=== PATIENT | female | born 1990 | race Caucasian/White ===

== ENCOUNTER 2018-08-16 11:50 | Observation (INO) ==
[2018-08-16] MEDS ORDERED: Ringers Solution, Lactated 1,000 ML IVC SCH (12:15)
[2018-08-16 13:15] LABS: Amphetamine Screen,Urine Negative ng/mL (Cutoff=1000); Barbiturate Screen,Urine Negative ng/mL (Cutoff=200); Benzodiazepines Screen,Urine Negative ng/mL (Cutoff=200); Cannabinoid Screen,Urine Negative ng/mL (Cutoff = 50); Cocaine Screen,Urine Negative ng/mL (Cutoff= 300); Opiate Screen,Urine Negative ng/mL (Cutoff=300); Phencyclidine Screen,Urine Negative ng/mL (Cutoff=25)
[2018-08-16 13:18] LABS: Basophils % 0.3 %; Eosinophils # 0.1 K/mcL (0.0-0.6); Eosinophils % 1.4 %; Hemoglobin 12.8 g/dL (11.5-15.4); Immature Granulocytes % 0.8 % (0-4); Lymphocytes # 1.6 K/mcL (0.6-4.6); Lymphocytes % 22.5 %; Mean Corpuscular HGB Conc 33.7 g/dL (31.6-35.5); Mean Corpuscular Hemoglobin 26.4 pg (28.0-33.3); Mean Corpuscular Volume 78.4 fL (83.0-100.0); Mean Platelet Volume 9.9 fL (9.4-12.4); Monocytes # 0.7 K/mcL (0.0-1.3); Monocytes % 9.5 %; Neutrophils # 4.8 K/mcL (1.6-8.9); Platelet Count 214 K/mcL (140-400); Red Blood Count 4.85 M/mcL (3.82-4.97); Red Cell Distribution Width 14.8 % (11.5-14.5); Segmented Neutrophils % 65.5 %
[2018-08-16 13:34] LABS: Triiodothyronine (T3) Free 3.47 pg/mL (2.50-3.90)
[2018-08-16 13:38] LABS: Triiodothyronine (T3) Total 1.76 ng/mL (0.87-1.78)
[2018-08-16 13:45] LABS: Thyroid Stimulating Hormone 1.634 mcIU/mL (0.340-5.600)
--- NOTE | 2018-09-01 11:01 | OB Labor Progress Note ---
Date of Encounter: 08/16/18 Time of Encounter: 15:00 Labor Progress Note - Subjective Subjective: Pt seen in office and found to have FHT's 190-200, she reports +GFM, no vb or lof. She does report feeling like she has a URI and achy. She denies UC's. - Vital Signs Vital Signs: temp 99.1, pulse 92,rr16 - Heart Tones Heart Tones: 150's and reactive (cat 1) - Mclean Mclean: irregular uc's - Plan Plan: Pt at 37 weeks gestation with tachycardia in office by doppler. During extended monitoring tracing was reassuring with normal baseline with accels. Tracing is reactive and she reports active fetus. She had normal TSH and CBC. Will d/c home with instructions to follow movement and do kick counts. She is to call if she identifies any concerns.
--- NOTE | 2018-09-01 11:28 | OB Labor Progress Note ---
Date of Encounter: 09/01/18
== END 2018-08-16 14:30 | disposition home or self-care (01) ==
LOC: 1NENULAB
PROVIDERS: ADMIT Registered Nurse; ATTEND Registered Nurse

== ENCOUNTER 2018-09-03 06:00 | Inpatient (IN) ==
[2018-09-03] MEDS ORDERED: Metoclopramide 10 MG/2 ML VIAL IVP PRN (06:34)
[2018-09-03] MEDS ORDERED: *HR* Nalbuphine 10 MG/ML AMPUL IVP PRN (06:34)
[2018-09-03] MEDS ORDERED: Naloxone 0.4 MG/ML INJ IVP PRN (06:34)
[2018-09-03] MEDS ORDERED: Ondansetron 4 MG/2 ML VIAL IVP PRN (06:34)
[2018-09-03] MEDS ORDERED: miSOPROStol 25 MCG TABLET PO PRN (06:34)
[2018-09-03] MEDS ORDERED: Famotidine 20 MG/2 ML VIAL IVP PRN (06:34)
[2018-09-03] MEDS ORDERED: Ringers Solution, Lactated 1,000 ML IVC SCH (06:45)
[2018-09-03 06:48] LABS: Basophils % 0.3 %; Eosinophils # 0.1 K/mcL (0.0-0.6); Eosinophils % 1.1 %; Hematocrit 35.3 % (35.3-44.9); Hemoglobin 11.7 g/dL (11.5-15.4); Immature Granulocytes % 0.6 % (0-4); Lymphocytes # 3.1 K/mcL (0.6-4.6); Lymphocytes % 29.8 %; Mean Corpuscular HGB Conc 33.1 g/dL (31.6-35.5); Mean Corpuscular Hemoglobin 26.7 pg (28.0-33.3); Mean Corpuscular Volume 80.4 fL (83.0-100.0); Mean Platelet Volume 10.2 fL (9.4-12.4); Monocytes # 0.6 K/mcL (0.0-1.3); Monocytes % 6.1 %; Neutrophils # 6.4 K/mcL (1.6-8.9); Platelet Count 227 K/mcL (140-400); Red Blood Count 4.39 M/mcL (3.82-4.97); Red Cell Distribution Width 15.2 % (11.5-14.5); Segmented Neutrophils % 62.1 %
[2018-09-03 07:01] LABS: Amphetamine Screen,Urine Negative ng/mL (Cutoff=1000); Barbiturate Screen,Urine Negative ng/mL (Cutoff=200)
[2018-09-03 07:03] LABS: Benzodiazepines Screen,Urine Negative ng/mL (Cutoff=300); Cannabinoid Screen,Urine Negative ng/mL (Cutoff = 50); Cocaine Screen,Urine Negative ng/mL (Cutoff= 300); Opiate Screen,Urine Negative ng/mL (Cutoff=300); Phencyclidine Screen,Urine Negative ng/mL (Cutoff=25)
--- NOTE | 2018-09-03 10:04 | Anesthesia Evaluation PreOp ---
Date of Encounter: 09/03/18 Time of Encounter: 10:11 - Past History Planned Operation: CHANO Cardiac History: Hyperlipidemia (statins stopped during ) Pulmonary History: Denies Any Significant HX NET LEAD ARCHITECT History: Denies Any Significant HX Other Medical History: GERD Anesthesia History: No Prior Anesthetic Complications, Past Anesthesia (ACL) : Yes Test: Positive Alcohol Use: none Drug use: none Medications and Allergies Vitamin Tablet 1 tab PO DAILY 08/16/18 [History] Allergy/AdvReac Type Severity Reaction Status Date / Time acetaminophen [From Vicodin] AdvReac Vomiting Verified 08/16/18 12:32 hydrocodone [From Vicodin] AdvReac Vomiting Verified 08/16/18 12:32 - Meds/Allergy Pre-op Review Medications Reviewed: Yes Allergies Reviewed: Yes Beta Blockers on Current Med List: No Anesthesia Results - Labs 09/03/18 06:25 09/03/18 06:25 Anesthesia Exam see note Height: 5'5" Weight: 211 lb NPO (# of Hours): 2 Pain Scale: 2 Pain Scale Used: Numeric (1 - 10) - HEENT Pupil (Motor): Pupils equal Mallampati: II Teeth: Normal Oral Opening: Greater than 3 - NET LEAD ARCHITECT LOC: Oriented NET LEAD ARCHITECT Motor: Normal RUE, Normal LUE, Normal RLE, Normal LLE, Normal Face NET LEAD ARCHITECT Sensory: Normal: RUE, LUE, RLE, LLE, Face - Cardiac Rhythm: Regular Murmur: None - Pulmonary Breath Sounds: bilateral Clear Respiratory Effort: Symmetrical Anesthesia Assess/Plan ASA Score: 2 Level of consciousness: Cooperative Anesthetic Plan: Epidural (risks discussed, questions answered, consented) Autologous Blood: No Monitoring Plan: Standard Monitors Recovery Plan: Other
[2018-09-03] MEDS ORDERED: *HR* Ropivacaine/PF 0.2% 20 ML VIAL EP ONE (10:12)
[2018-09-03] MEDS ORDERED: *HR* FentaNYL (PF) 100 MCG/2 ML VIAL EP ONE (10:12)
[2018-09-03] MEDS ORDERED: Epidural Premix (fent/bupiv) 110 ML EP SCH (10:15)
[2018-09-03] MEDS ORDERED: *HR* Ropivacaine/PF 0.2% 20 ML VIAL ONE (10:34)
[2018-09-03] MEDS ORDERED: *HR* FentaNYL (PF) 100 MCG/2 ML VIAL ONE (10:34)
[2018-09-03] MEDS ORDERED: Lidocaine -MPF 2% 5 ML VIAL ONE (10:34)
--- NOTE | 2018-09-03 11:01 | Anesthesia Procedures ---
Addendum entered and electronically signed by Milad Jesus CRNA 09/03/18 16:02: Date: 09/03/18 14:06 Delivery - Delivery Date: 09/03/18 Provider: Kurt Eugene Delivery induction: misoprostol Delivery monitor: external FHT, external uterine Anesthesia: epidural Quantitated Blood Loss: 200 Original Note: Date of Encounter: 09/03/18 Time of Encounter: 10:59 Procedures: Anesthesia - Epidural/Spinal Patient ID/Chart reviewed: Yes Patient examined: Yes OB Eval: Gestational age: 39 OB Eval: : 2 OB Eval: Hx Para: 1 OB Eval: Dilated at (cm): 6 OB Eval: Contractions: Non-stressed pattern Consent Obtained: Yes Supplemental Oxygen: None/Room Air Site Prep: Aseptic Technique, Sterile prep and drape, 0.5% Chlorhexidine/Alcohol Patient position: upright Local Anesthetic: Lidocaine 1% Amount of Local Anesthetic used: 3 Touhy Needle Gauge: 18 Touhy Needle Depth (cm): 8 Catheter Depth at Skin (cm): 20 Test Dose (1.5% Lido + Epi): Volume given (mls): 3 Test Dose Result: Negative Loading Dose: Fentanyl (mcg): 100 Loading Dose: Other: rop 0.2% 10cc Loading Dose Administered: Thru Touhy Needle Infusion Med: 0.125% Bupivacaine w/ 2 mcg/ml Fentanyl Infusion Rate (mls/hr): 15 (pcea 5cc q30") Catheter Secured in Place: Tegaderm Interspace Used: L2-L3 Loss of Resistance (JUDY): Yes Blood: No CSF: No Paresthesia: No Procedure: aseptic, yolanda well,VSS, effective Vitals + FHT's: 130/80 88 16 fht 132
[2018-09-03] MEDS ORDERED: Oxytocin 20 units/ LR 1000 mL 20 UNIT/1,000 ML BAG IVC ONE (13:10)
--- NOTE | 2018-09-03 14:08 | OB/GYN Procedure Note ---
Delivery - Delivery Date: 09/03/18 Provider: Kurt Eugene Delivery induction: misoprostol Delivery monitor: external FHT, external uterine Anesthesia: epidural Quantitated Blood Loss: 200 - Repair Episiotomy: none Laceration Description: Perineal - 1st Degree - Complications Delivery complications: none - Disposition Mom disposition: stable in LDR [place] disposition: stable in LDR - Comments Comments: Patient is status post normalspontaneous vaginal delivery of liveborn male infant weighing 9 lbs. 4 oz. Apgars of 9 at 1 minute and 9 at 5 minutes with spontaneous delivery of normal placenta with three-vessel cord. This first- degree laceration repaired with 3-0 Vicryl under epidural anesthesia. No complications mother and infant recovered in labor and delivery and
--- NOTE | 2018-09-03 14:10 | OB/GYN History & Physical ---
Date of Encounter: 09/03/18 Time of Encounter: 14:08 Assessment and Plan (1) 39 weeks gestation of Current visit: Yes Status: Acute Pt at 39 weeks gestation presents for induction of labor. Will admit to labor and delivery and begin Cytotec. Perform amniotomy when able and expect NDSVD. History of Present Illness Chief complaint: Here for induction HPI: Ms. Ramos is a 27 year old female at 39 weeks and 5 days gestation presents for induction of labor. thus far has been uncomplicated. Past Med Surg Social Fam HX - Past Medical History Source: patient, old records reviewed Medical history: no medical history Psychiatric history: no psych history - Past Surgical History Additional surgical history: ACL surgery 2005 - Social History Smoking Status: Never smoker Smokeless Tobacco Status: No Alcohol use: none Drug use: none - Family History Mother Age: 59 Living Status: Still Living Hx Family Cardiac Disorders: Yes (htn) Hx Family Respiratory Disorders: No Hx Family Cancer: No Hx Family GI Disorders: No Hx Family Genitourinary Disorders: No Hx Family Endocrine Disorder: No Hx Family Musculoskeletal Disorders: No Hx Family Neuromuscular Disorders: No Hx Family Neurologic Disorders: No Hx Family HEENT Disorders: No Hx Family Autoimmune Disorders: No Hx Family Reproductive Disorders: No Hx Family Psychosocial Disorders: No Hx Family Medical Disorders: No Obstetrical History - Pregnancies : 2 Medications and Allergies Vitamin Tablet 1 tab PO DAILY 08/16/18 [History] Allergy/AdvReac Type Severity Reaction Status Date / Time acetaminophen [From Vicodin] AdvReac Vomiting Verified 08/16/18 12:32 hydrocodone [From Vicodin] AdvReac Vomiting Verified 08/16/18 12:32 Exam - Vital Signs Vital signs: Initial Vital Signs Temp Pulse Resp BP 98.2 F 83 16 125/80 09/03/18 06:22 09/03/18 06:22 09/03/18 06:22 09/03/18 06:22 - Constitutional Constitutional: well nourished, no acute distress - HEENT HEENT: EOMI, PERRL - Neck Neck exam: full ROM - Lungs Respiratory exam: CTAB - Cardiovascular Cardiovascular exam: RRR - Abdomen Abdomen: Present: gravid - Extremities Extremities exam: full ROM Deep Tendon Reflex Grade: 2+ Normal - Cervix Dilation: 3 Effacement: 90 Station: -2 Results Result Diagrams: 09/03/18 06:25 09/03/18 06:25 Abnormal lab results MCV 80.4 fL (83.0-100.0) L 09/03/18 06:25 MCH 26.7 pg (28.0-33.3) L 09/03/18 06:25 RDW 15.2 % (11.5-14.5) H 09/03/18 06:25 Glucose 124 mg/dL (70-105) H 09/03/18 06:25 All other labs normal. - VTE Reasons for not Prescribing Prophylaxis: Treatment not Indicated - Low risk for VTE
[2018-09-03] MEDS ORDERED: Oxytocin 20 units/ LR 1000 mL 20 UNIT/1,000 ML BAG IVC SCH (16:30)
[2018-09-03] MEDS ORDERED: Rho Immune Globulin 1,500 UNIT SYRINGE IM PRN (16:30)
[2018-09-03] MEDS ORDERED: Acetaminophen 325 MG TABLET PO PRN (16:30)
[2018-09-03] MEDS ORDERED: Measles/Mumps/Rubella Vacc 0.5 ML VIAL SQ PRN (16:30)
[2018-09-04 05:28] LABS: Basophils % 0.3 %; Eosinophils # 0.1 K/mcL (0.0-0.6); Eosinophils % 0.8 %; Hematocrit 30.7 % (35.3-44.9); Immature Granulocytes % 0.7 % (0-4); Lymphocytes # 3.8 K/mcL (0.6-4.6); Lymphocytes % 31.3 %; Mean Corpuscular HGB Conc 32.9 g/dL (31.6-35.5); Mean Corpuscular Hemoglobin 26.6 pg (28.0-33.3); Mean Corpuscular Volume 80.8 fL (83.0-100.0); Monocytes # 0.9 K/mcL (0.0-1.3); Neutrophils # 7.3 K/mcL (1.6-8.9); Platelet Count 184 K/mcL (140-400); Red Cell Distribution Width 15.6 % (11.5-14.5); Segmented Neutrophils % 59.9 %
[2018-09-04 05:30] LABS: Hemoglobin 10.1 g/dL (11.5-15.4)
[2018-09-04 08:29] VITALS: BP 111/73
[2018-09-04] MEDS ORDERED: Prenatal Vit/FA 1 EACH TABLET PO SCH (09:00)
--- NOTE | 2018-09-04 09:22 | Discharge Summary ---
Date of Encounter: 09/04/18 Time of Encounter: 09:18 - Discharge Diagnosis (1) Status post vaginal delivery Priority: Primary Status: Acute Comments: S/p induction of labor with spontaneous vaginal delivery 1st degree lac repair but otherwise no complications Eating well, no problems with urination, passing gas, pain well controlled, moderate lochia with passage of 2 small clots Plans to bottle feed and restart control pills at follow up appointment - Discharge Medications Prescriptions: New Acetaminophen [Tylenol] 650 mg PO Q6HR PRN #0 tablet PRN Reason: Mild Pain Docusate [Colace] 100 mg PO BID #60 capsule Ibuprofen [Motrin] 600 mg PO Q6HR PRN 30 Days tab PRN Reason: Pain Continue Vitamin Tablet 1 tab PO DAILY #30 Home Medications: Acetaminophen [Tylenol] 650 mg PO Q6HR PRN #0 tablet 09/04/18 [Rx] Docusate [Colace] 100 mg PO BID #60 capsule 09/04/18 [Rx] Ibuprofen [Motrin] 600 mg PO Q6HR PRN 30 Days tab 09/04/18 [Rx] Vitamin Tablet 1 tab PO DAILY #30 09/04/18 [Rx] Allergies/Adverse Reactions: Allergy/AdvReac Type Severity Reaction Status Date / Time hydrocodone [From Vicodin] AdvReac Vomiting Verified 08/16/18 12:32 Data Procedures and tests throughout hospitalization: Laboratory Tests 09/03/18 09/03/18 09/03/18 06:25 06:25 06:25 WBC 10.2 RBC 4.39 Hgb 11.7 Hct 35.3 MCV 80.4 L MCH 26.7 L MCHC 33.1 RDW 15.2 H Plt Count 227 MPV 10.2 Immature Gran % 0.6 Seg Neutrophils % 62.1 Lymphocytes % 29.8 Monocytes % 6.1 Eosinophils % 1.1 Basophils % 0.3 Neutrophils # 6.4 Lymphocytes # 3.1 Monocytes # 0.6 Eosinophils # 0.1 Basophils # 0.0 Glucose 124 H Urine Opiates Screen Negative Ur Barbiturates Screen Negative Ur Phencyclidine Scrn Negative Ur Amphetamines Screen Negative U Benzodiazepines Scrn Negative Urine Cocaine Screen Negative U Marijuana (THC) Screen Negative Ur Drug Screen Interp See Below Baby's Blood Type Mother's Blood Type Rhogam Indicated 09/03/18 09/04/18 14:00 04:38 WBC 12.2 H RBC 3.80 L Hgb 10.1 L D Hct 30.7 L MCV 80.8 L MCH 26.6 L MCHC 32.9 RDW 15.6 H Plt Count 184 MPV 10.0 Immature Gran % 0.7 Seg Neutrophils % 59.9 Lymphocytes % 31.3 Monocytes % 7.0 Eosinophils % 0.8 Basophils % 0.3 Neutrophils # 7.3 Lymphocytes # 3.8 Monocytes # 0.9 Eosinophils # 0.1 Basophils # 0.0 Glucose Urine Opiates Screen Ur Barbiturates Screen Ur Phencyclidine Scrn Ur Amphetamines Screen U Benzodiazepines Scrn Urine Cocaine Screen U Marijuana (THC) Screen Ur Drug Screen Interp Baby's Blood Type B RH NEGATIVE Mother's Blood Type B RH NEGATIVE Rhogam Indicated NO Labs on day of discharge: Labs from last 24 hours 09/04/18 09/03/18 04:38 14:00 WBC 12.2 H RBC 3.80 L Hgb 10.1 L D Hct 30.7 L MCV 80.8 L MCH 26.6 L MCHC 32.9 RDW 15.6 H Plt Count 184 MPV 10.0 Immature Gran % 0.7 Seg Neutrophils % 59.9 Lymphocytes % 31.3 Monocytes % 7.0 Eosinophils % 0.8 Basophils % 0.3 Neutrophils # 7.3 Lymphocytes # 3.8 Monocytes # 0.9 Eosinophils # 0.1 Basophils # 0.0 Baby's Blood Type B RH NEGATIVE Mother's Blood Type B RH NEGATIVE Rhogam Indicated NO Date of admission: 09/03/18 06:04 Primary care physician: Rene Vivar Consults: 09/03/18 16:30 Consult to Branch Library Clerk [CONS] Routine Comment: Vaginal delivery, consult needed Discharging clinician: Stephie oJnes Anticipated date of discharge: 09/04/18 - Patient Status Disposition: Home, Self-Care Condition: Good Functional capacity at discharge: independent ambulation Overall status at discharge: patient is back to baseline - Discharge Instructions Follow Up With: Rene Vivar DO [Primary Care Provider] - Kurt Eugene MD [Partnered Physician] - - Diet and Activity Activity: resume usual activities as tolerated Diet: advance to your usual diet Hospital Course Reason for admission: induction of labor Delivery: Episiotomy: none Laceration: 1st degree Other procedures: none complications: none Discharge diagnosis: IUP at term delivered baby: male Hospital course: Pt well appearing without complaints. Ambulating without difficulty. Eating and drinking, moderate lochia, no problems with urination and passing gas. Will be DC'd today with follow up with Dr. Eugene in 4 weeks. - Delivery Date: 09/03/18 Provider: Kurt Eugene Delivery induction: misoprostol Delivery monitor: external FHT, external uterine Anesthesia: epidural Quantitated Blood Loss: 200 - Repair Episiotomy: none Laceration Description: Perineal - 1st Degree - Complications Delivery complications: none - Disposition Mom disposition: stable in LDR [place] disposition: stable in LDR Time Attestation: Total time spent providing and/or coordinating discharge services: Exam - Constitutional Vitals: Temp Pulse Resp BP Pulse Ox 98.0 F 83 14 111/73 96 09/04/18 08:28 09/04/18 08:28 09/04/18 08:28 09/04/18 08:28 09/04/18 08:28 General appearance IM: A&O X 3 - Respiratory Respiratory exam: Present: CTAB - Cardiovascular Cardiovascular exam IM: Present: RRR, +S1, +S2 - GI/Abdominal GI/Abdominal exam IM: soft - Uterus Position: 1 Finger Below Umbilicus - Extremities Exam Extremities exam IM: Present: warm. Absent: calf tenderness, pedal edema - Neurological Exam Neurological exam: alert, oriented X3 - Attending Attestation I have seen and examined pt independent of resident physician. Pt desires discharge home today s/p . She is doing well with no complaints. She is bottle feeding. Plan for discharge home this afternoon. Pt to follow-up with Dr. Eugene in 4-6 weeks.
== END 2018-09-04 15:30 | disposition home or self-care (01) | DRG 807 ==
LOC: 1NENULAB 06:04 → 1NENUOBS 16:22
PROVIDERS: ADMIT Registered Nurse; ATTEND Registered Nurse